=== PATIENT | male | born 1945 | race Caucasian/White ===

== ENCOUNTER → 2020-11-05 | Outpatient (CLI) | payer MEDICARE ==
--- NOTE | 2020-11-05 16:17 | CT ---
EXAMINATION TYPE: CT ChestAbdPelvis w con DATE OF EXAM: 11/05/2020 COMPARISON: None. HISTORY: lymphoma CT DLP: 2604.4 mGycm. Automated Exposure Control for Dose Reduction was Utilized. CONTRAST: CT scan of the thorax, abdomen and pelvis is performed with IV Contrast, patient injected with 80cc m L of Isovue 300. FINDINGS: LUNGS: There is 7 to 8 mm calcified nodule or granuloma in the superior aspect left lower lobe axial image 27. Elevated left hemidiaphragm with mild left basilar linear scarring and/or atelectasis. No s uspicious noncalcified pulmonary nodules or masses. No pleural effusion or pneumothorax seen. MEDIASTINUM: There are some prominent bilateral hilar lymph nodes for reference 1.5 x 1.7 cm right hi lar lymph node image 36 is noted. Superior to this there is 1.6 x 1.4 cm right suprahilar lymph node axial image 29. Tiny pericardial effusion is seen. Mild cardiomegaly. OTHER: No axillary adenopathy.. LIVER/GB: Liver is small in size with lobulated peripheral contour and heterogeneously hypodense. Sub centimeter low dense lesion posterior right hepatic lobe on axial image 63. PANCREAS: Moderate generalized fat replaced atrophy. SPLEEN: Spleen is nonenlarged. ADRENALS: No significant abnormality is seen. KIDNEYS: Symmetric cortical medullary uptake and excretion without hydronephrosis seen bilaterally. M oderate concentric wall thickening in poorly distended bladder. BOWEL: No significant abnormality is seen. GENITAL ORGANS: Slightly enlarged prostate gland consistent with BPH.. LYMPH NODES: No suspicious greater than 1cm abdominal or pelvic lymph nodes are appreciated. Prominen t borderline enlarged bilateral groin lymph nodes but retention of central fatty hilum is felt presen t. OSSEOUS STRUCTURES: Moderate to severe narrowing with vacuum disc phenomenon and endplate sclerosis L 4-L5 level. Yhtospml-ym-tauhoh disc space narrowing L5-S1 level. Moderate multilevel spurring in the spine. OTHER: No significant additional abnormality is seen. IMPRESSION: Abnormal right hilar adenopathy. Possible underlying cirrhosis. Correlate clinically. Cor relation with old outside CT or PET/CT would be beneficial.
== END | disposition home or self-care (01) ==
LOC: RADCTMAIN 13:56
PROVIDERS: ATTEND Internal Medicine Hematology & Oncology
DX: R59.9 Enlarged lymph nodes, unspecified (principal); C88.4 Extranodal marginal zone B-cell lymphoma of mucosa-associated lymphoid tissue [MALT-lymphoma]
CPT/HCPCS: 82565; 84520; 71260; 74177; 36415; Q9967

== ENCOUNTER → 2021-01-29 | Outpatient (CLI) | payer MEDICARE ==
[2021-01-29 10:44] LABS: African American GFR (CKD) >90 (>60 ml/min/1.73 sqM); Blood Urea Nitrogen 19 mg/dL (9-20); Non-African American GFR(CKD) 87 (>60 ml/min/1.73 sqM)
--- NOTE | 2021-01-29 13:56 | CT ---
EXAMINATION TYPE: CT chest w con DATE OF EXAM: 01/29/2021 COMPARISON: 11/05/2020 HISTORY: Lymphoma CT DLP: 941.80 mGycm, Automated exposure control for dose reduction was used. CONTRAST: Performed injected with 100 ml mL of Isovue 300. TECHNIQUE: Axial images were obtained at 5 mm thick sections. Reconstructed images are reviewed on [employer] computer in the coronal plane. FINDINGS: Portion of the thyroid visualized is normal. No suspicious lung nodules or focal infiltrates are present. Calcified 0.6 cm granuloma remains at th e left base. No enlarged mediastinal or hilar adenopathy is evident. Significant shoddy lymphadenopathy is not jesus ntified. Couple small right hilar lymph nodes are noted. These are diminished in size from the compar caro. The ascending aorta diameter at the level of the main pulmonary artery is 3.4 cm. The main pu lmonary artery diameter at the bifurcation is 3.[address] sections are obtained through the upper abdomen. Abdomen is essentially unremarkable. IMPRESSIONS: 1. No suspicious enlarged lymphadenopathy.
== END | disposition home or self-care (01) ==
LOC: RADCTMAIN 10:06
PROVIDERS: ATTEND Internal Medicine Hematology & Oncology
DX: C88.4 Extranodal marginal zone B-cell lymphoma of mucosa-associated lymphoid tissue [MALT-lymphoma] (principal); E11.9 Type 2 diabetes mellitus without complications; Z79.84 Long term (current) use of oral hypoglycemic drugs
CPT/HCPCS: 82565; 84520; 71260; 36415; Q9967

== ENCOUNTER 2022-08-26 06:33 | Day surgery (SDC) | payer MEDICARE ==
[~2022-08-26 06:33] MED LIST: LACTATED RINGERS 1,000 ML IV SCH; SODIUM CHLORIDE 0.9% 1,000 ML IV SCH
[2022-08-26 07:02] LABS: Glucose,Whole Blood 124 mg/dL (70-110)
[2022-08-26] MEDS ORDERED: SODIUM CHLORIDE 0.9% 500 ML 500 ML IV ONE (07:04)
[2022-08-26 07:07] VITALS: RESP 16
[2022-08-26 07:28] LABS: Calcium 8.4 mg/dL (8.4-10.2); Potassium 4.3 mmol/L (3.5-5.1)
--- NOTE | 2022-08-26 07:54 | P.TEE ---
Description of Procedure(s): Procedure performed: Transesophageal Echocardiogram with color flow doppler, pulsed wave doppler and continuous wave doppler, Synchronized cardioversion Moderate conscious sedation: Moderate conscious sedation was supplied by anesthesia Complications: none Indications: Afib PROCEDURE: After the risks, benefits and alternatives of the above mentioned procedure was explained in detail with the patient, informed consent was obtained. Patient was brought to the lab in a fasting state. Patient was given sedation by anesthesia. The throat was sprayed with Hurricane to anesthetize the throat. A lubricated Omni probe was then introduced into the esophagus and stomach and multiple views were obtained. 2D echo with color flow doppler, pulsed wave doppler and continuous wave doppler was utilized. Agitated saline bubbles were injected to assess for any intra-atrial shunt. The probe was then removed. Synchronized cardioversion was performed with 200 J with resultant sinus rhythm. Patient tolerated the procedure well. Patient was transferred to the post procedure area in stable and satisfactory condition. FINDINGS: 1. The aortic valve is tricuspid and functioning normally with trace aortic insufficiency. 2. The mitral valve appears be normal with trace mitral regurgitation. 3. Tricuspid valve appears to be normal without significant tricuspid regurgitation. 4. The interatrial septum is intact. No evidence of PFO. 5. Left atrial appendage is free of clot. 6. Left ventricular ejection fraction is 45-50% with mild global hypokinesis.
[2022-08-26 08:22] VITALS: TEMP 97.5
[2022-08-26] MEDS ORDERED: SODIUM CHLORIDE 0.9% 1,000 ML IV ONE (08:35)
[2022-08-26 19:19] VITALS: BP 111/63; PULSE 55
== END 2022-08-26 09:53 | disposition home or self-care (01) ==
LOC: CATHCVL 06:33
PROVIDERS: ATTEND Internal Medicine
DX: I48.91 Unspecified atrial fibrillation (principal); I34.0 Nonrheumatic mitral (valve) insufficiency; I10 Essential (primary) hypertension; E11.9 Type 2 diabetes mellitus without complications; Z79.899 Other long term (current) drug therapy; Z79.01 Long term (current) use of anticoagulants
CPT/HCPCS: 80048; 92960; 93005; 93312; 93320; 93325

== ENCOUNTER → 2022-09-28 | Outpatient (CLI) | payer MEDICARE ==
--- NOTE | 2022-09-28 10:53 | MR ---
EXAMINATION TYPE: MR lumbar spine wo con DATE OF EXAM: 09/28/2022 COMPARISON: None HISTORY: Chronic lower back pain, radiates down left leg. TECHNIQUE: Multiplanar, multisequence images of the lumbar spine were acquired without IV contrast. Findings: Lumbar vertebral segments are normal in height and alignment and there is no fracture or subluxation. . There is severe degenerative disease at the L to 3, L4-5 and L5-S1 levels where there is displaced na rrowing circumferential disc bulge and spondylosis. There are discogenic endplate changes There is moderate degenerative disc disease with moderate disc space narrowing and spondylosis at the L1-2 level. The L3-4 disc spaces well-maintained in height. Secondary to marked circumferential disc bulge, hypertrophy of the facets and thickening of ligamentu m flavum, there is severe spinal stenosis at the L2-3 level. There is buckling of the nerve roots of the cauda equina superior to the L2-3 level which also indicates severe stenosis at the L2-3 level. There is mild stenosis at the L4-5 level secondary to circumferential disc bulge and thickening of li gamentum flavum as well as facet hypertrophy. In particular there is significant compromise of the ri ght lateral recess secondary to facet hypertrophy and disc bulge. There is no focal disc herniation. There is moderate facet arthropathy at the L2-3, L3-4 and L4-5 levels. Paraspinal soft tissues are unremarkable. There is mild compromise of the L4-5 neuroforamina on the right and mild to moderate compromise of th e neuroforamina at the L2-3, L4-5 and L5-S1 levels on the left.. IMPRESSION: 1. Multilevel degenerative disc disease severe at the L2-3, L4-5 and L5-S1 levels. 2. Severe spinal stenosis at the L2-3 level and mild spinal stenosis at the L4-5 level. Severe compro mise of the right lateral recess at the L4-5 level. 3. No focal disc herniation. 4. Moderate facet degeneration at the L2-3, L3-4 and L4-5 levels. 5. Multilevel kgjy-ol-wzbzqcoe neural foraminal stenosis, left greater than right.
== END | disposition home or self-care (01) ==
LOC: RADMRIMAIN 09:30
PROVIDERS: ATTEND Orthopaedic Surgery
DX: M47.26 Other spondylosis with radiculopathy, lumbar region (principal); M51.16 Intervertebral disc disorders with radiculopathy, lumbar region; M48.061 Spinal stenosis, lumbar region without neurogenic claudication; M99.73 Connective tissue and disc stenosis of intervertebral foramina of lumbar region
CPT/HCPCS: 72148

== ENCOUNTER 2022-10-26 17:29 | Inpatient (IN) | payer MEDICARE ==
[2022-10-26] MEDS ORDERED: ATROPINE SULFATE 0.1 MG/ML 10ML SYRINGE IV STA (17:45)
[2022-10-26] MEDS ORDERED: DOPamine DRIP 800 MG in DEXTROSE/WATER 1 250ML.BAG IV ONE (17:55)
--- NOTE | 2022-10-26 18:01 | ED ---
General Adult HPI - General Chief complaint: Arrhythmia/Palpitations Stated complaint: AFib Time Seen by Provider: 10/26/22 17:43 Source: patient Mode of arrival: ambulatory Limitations: no limitations - History of Present Illness Initial comments: Dictation was produced using [employer] dictation software. please excuse any grammatical, word or spelling errors. Chief Complaint: 77-year-old male presents emergency department for bradycardia and generalized weakness History of Present Illness: Is 77-year-old male. History of present illness obtained from was at the bedside. states that today he became very weak and cyanotic and pale. His rash to the emergency department via private vehicle. Patient allegedly was recently hospitalized for atrial fibrillation with rapid ventricular rate. He was started on A. fib medications. is not entirely confident what medications he was recently prescribed but it does in clude beta kwabena. He was prescribed eliquis however has not started that medication. The ROS documented in this emergency department record has been reviewed and confirmed by me. Those systems with pertinent positive or negative responses have been documented in the HPI. All other systems are other negative and/or noncontributory. PHYSICAL EXAM: General Impression: Lethargic, pale HEENT: Normocephalic atraumatic, extra-ocular movements intact, pupils equal and reactive to light bilaterally, dry mucous membranes Cardiovascular: Bradycardic Chest: no retractions, no tachypnea Abdomen: abdomen soft, non-tender, non-distended, no organomegaly Musculoskeletal: Pulses present and equal in all extremities, no peripheral edema Motor: no focal deficits noted Neurological: CN II-XII grossly intact, no focal motor or sensory deficits noted ED course: 77-year-old male presents to the emergency department for weakness, pallor. Vital signs upon arrival shows heart rate of 40, blood pressure 60/30, rest of vital signs within acceptable limits. Patient received an ER room #5. Patient's heart rate on the legal executive assistant went down as low as 19, with a average of low 20s. Patient was given 1 mg of atropine and 20 Rich grams of epinephrine with improvement of heart rate to the 40s. Cardiology was contacted immediately for emergent temporary IV pacemaker placement. Dr. Machado request the patient be started on dopamine and Levophed. Patient has a narrow complex bradycardia seen on the EKG. No obvious P waves. Nursing notes and chart review was performed EKG interpreted by me: Ventricular rate 20, bradycardia, QRS 103, QTc 453. Laboratory evaluation obtained. CBC remarkable. Coag panel is negative. Metabolic panel shows mild non-gap acidosis bicarb of 18. Elevated renal markers creatinine of 2.04, BUN 37. Lactic acidosis 3.7. Rest of labs unremar kable. Chest x-ray is nonacute. Patient reevaluated at the bedside at 6:50 PM. His vital signs remain stable with a rate in the mid 30s. Blood pressure is 91/55. These results were relayed to Dr. Matute who requests that Commercial Teller be called in for stat IV pacer placement. critical care time: 76 minutes - Related Data Home Medications Medication Instructions Recorded Confirmed Apixaban [Eliquis] 5 mg PO BID 08/25/22 08/26/22 Metoprolol Tartrate [Lopressor] 100 mg PO DAILY 08/25/22 08/25/22 Spironolactone [Aldactone] 25 mg PO DAILY 08/25/22 08/25/22 Tamsulosin HCl [Flomax] 0.4 mg PO BID 08/25/22 08/25/22 metFORMIN HCL [Glucophage] 500 mg PO BID 08/25/22 08/25/22 Previous Rx's Medication Instructions Recorded Amiodarone [Cordarone] 100 mg PO DAILY #90 tab 08/26/22 Furosemide [Lasix] 40 mg PO DAILY #90 tab 08/26/22 Allergies Allergy/AdvReac Type Severity Reaction Status Date / Time No Known Allergies Allergy Verified 10/26/22 17:52 Review of Systems ROS Statement: Those systems with pertinent positive or pertinent negative responses have been documented in the HPI. ROS Other: All systems not noted in ROS Statement are negative. Past Medical History Past Medical History: Atrial Fibrillation, Diabetes Mellitus, Hypertension, Prostate Disorder Additional Past Medical History / Comment(s): SOB w/exertion, lightheaded @times History of Any Multi-Drug Resistant Organisms: None Reported Past Surgical History: Hernia Repair, Orthopedic Surgery Additional Past Surgical History / Comment(s): numerous vocal cord surgeries for papillomas, left shoulder surg., arm surg. for fx.-no hardware Past Anesthesia/Blood Transfusion Reactions: Previous Problems w/ Anesthesia Additional Past Anesthesia/Blood Transfusion Reaction / Comment(s): woke up once during surgery Past Psychological History: No Psychological Hx Reported Smoking Status: Never smoker Past Alcohol Use History: Daily Past Drug Use History: None Reported General Exam Limitations: no limitations Course Vital Signs 10/26/22 10/26/22 10/26/22 17:35 17:58 18:21 Temperature 98.2 F Pulse Rate 40 L 40 L 37 L Respiratory 24 16 18 Rate Blood Pressure 60/30 96/66 104/66 O2 Sat by Pulse 99 99 100 Oximetry Medical Decision Making - Lab Data Result diagrams: 10/26/22 17:57 10/26/22 17:57 Lab Results 10/26/22 10/26/22 10/26/22 Range/Units 17:57 17:57 17:57 WBC 7.8 (3.8-10.6) k/uL RBC 3.45 L (4.30-5.90) m/uL Hgb 12.3 L (13.0-17.5) gm/dL Hct 36.6 L (39.0-53.0) % MCV 106.0 H (80.0-100.0) fL MCH 35.7 H (25.0-35.0) pg MCHC 33.7 (31.0-37.0) g/dL RDW 12.6 (11.5-15.5) % Plt Count 153 (150-450) k/uL MPV 9.1 Neutrophils % 68 % Lymphocytes % 18 % Monocytes % 8 % Eosinophils % 4 % Basophils % 1 % Neutrophils # 5.3 (1.3-7.7) k/uL Lymphocytes # 1.4 (1.0-4.8) k/uL Monocytes # 0.6 (0-1.0) k/uL Eosinophils # 0.3 (0-0.7) k/uL Basophils # 0.1 (0-0.2) k/uL Macrocytosis Slight PT (9.0-12.0) sec INR (<1.2) APTT (22.0-30.0) sec Sodium 136 L (137-145) mmol/L Potassium 5.2 H (3.5-5.1) mmol/L Chloride 109 H (98-107) mmol/L Carbon Dioxide 18 L (22-30) mmol/L Anion Gap 9 mmol/L BUN 37 H (9-20) mg/dL Creatinine 2.04 H (0.66-1.25) mg/dL Est GFR (CKD-EPI)AfAm 36 (>60 ml/min/1.73 sqM) Est GFR (CKD-EPI)NonAf 31 (>60 ml/min/1.73 sqM) Glucose 242 H (74-99) mg/dL Plasma Lactic Acid Amadeo 3.7 H* (0.7-2.0) mmol/L Calcium 8.4 (8.4-10.2) mg/dL Ionized Calcium Deric 4.8 (4.5-5.3) mg/dL Magnesium 2.0 (1.6-2.3) mg/dL Total Bilirubin 0.6 (0.2-1.3) mg/dL AST 37 (17-59) U/L ALT 21 (4-49) U/L Alkaline Phosphatase 81 (38-126) U/L Total Protein 6.3 (6.3-8.2) g/dL Albumin 3.2 L (3.5-5.0) g/dL 10/26/22 Range/Units 17:57 WBC (3.8-10.6) k/uL RBC (4.30-5.90) m/uL Hgb (13.0-17.5) gm/dL Hct (39.0-53.0) % MCV (80.0-100.0) fL MCH (25.0-35.0) pg MCHC (31.0-37.0) g/dL RDW (11.5-15.5) % Plt Count (150-450) k/uL MPV Neutrophils % % Lymphocytes % % Monocytes % % Eosinophils % % Basophils % % Neutrophils # (1.3-7.7) k/uL Lymphocytes # (1.0-4.8) k/uL Monocytes # (0-1.0) k/uL Eosinophils # (0-0.7) k/uL Basophils # (0-0.2) k/uL Macrocytosis PT 11.2 (9.0-12.0) sec INR 1.1 (<1.2) APTT 22.7 (22.0-30.0) sec Sodium (137-145) mmol/L Potassium (3.5-5.1) mmol/L Chloride (98-107) mmol/L Carbon Dioxide (22-30) mmol/L Anion Gap mmol/L BUN (9-20) mg/dL Creatinine (0.66-1.25) mg/dL Est GFR (CKD-EPI)AfAm (>60 ml/min/1.73 sqM) Est GFR (CKD-EPI)NonAf (>60 ml/min/1.73 sqM) Glucose (74-99) mg/dL Plasma Lactic Acid Amadeo (0.7-2.0) mmol/L Calcium (8.4-10.2) mg/dL Ionized Calcium Edric (4.5-5.3) mg/dL Magnesium (1.6-2.3) mg/dL Total Bilirubin (0.2-1.3) mg/dL AST (17-59) U/L ALT (4-49) U/L Alkaline Phosphatase (38-126) U/L Total Protein (6.3-8.2) g/dL Albumin (3.5-5.0) g/dL Disposition Clinical Impression: Bradycardia Disposition: ADMITTED IP TO THIS HOSP Condition: Critical Referrals: Rolly Londono MD [Primary Care Provider] - 1-2 days Decision Time: 18:51
[2022-10-26] MEDS ORDERED: SODIUM CHLORIDE 0.9% 1,000 ML IV STA (18:14)
[2022-10-26] MEDS: NOREPINEPHRINE 4 MG in SODIUM CHLORIDE 0.9% 250 ML IV SCH (18:20)
--- NOTE | 2022-10-26 18:23 | XR ---
EXAMINATION TYPE: XR chest 1V portable DATE OF EXAM: 10/26/2022 COMPARISON: 08/16/2018 HISTORY: Bradycardia TECHNIQUE: FINDINGS: Heart is enlarged. No heart failure seen. There is mild subsegmental atelectasis right lung base. Bony thorax is intact. No pleural effusion. IMPRESSION: There is some minimal atelectasis right lung base which is new compared to old exam. No h eart failure.
[2022-10-26 18:25] LABS: Basophils # (A) 0.1 k/uL (0-0.2); Basophils % (A) 1 %; Eosinophils # (A) 0.3 k/uL (0-0.7); Eosinophils % (A) 4 %; HCT 36.6 % (39.0-53.0); HGB 12.3 gm/dL (13.0-17.5); Lymphocytes # (A) 1.4 k/uL (1.0-4.8); Lymphocytes % (A) 18 %; MCH 35.7 pg (25.0-35.0); MCHC 33.7 g/dL (31.0-37.0); Macrocytosis Slight; Mean Platelet Volume 9.1; Monocytes # (A) 0.6 k/uL (0-1.0); Monocytes % (A) 8 %; Neutrophils # (A) 5.3 k/uL (1.3-7.7); Neutrophils % (A) 68 %; Platelet Count 153 k/uL (150-450); RBC 3.45 m/uL (4.30-5.90); RDW 12.6 % (11.5-15.5); WBC 7.8 k/uL (3.8-10.6)
[2022-10-26 18:29] LABS: Ionized Calcium 4.8 mg/dL (4.5-5.3)
[2022-10-26 18:39] LABS: Albumin 3.2 g/dL (3.5-5.0); Calcium 8.4 mg/dL (8.4-10.2); Total Bilirubin 0.6 mg/dL (0.2-1.3); Total Protein 6.3 g/dL (6.3-8.2)
[2022-10-26 18:42] LABS: Potassium 5.2 mmol/L (3.5-5.1)
[2022-10-26 18:44] LABS: INR 1.1 (<1.2); Partial Thromboplastin Time 22.7 sec (22.0-30.0); Prothrombin Time 11.2 sec (9.0-12.0)
[2022-10-26] MEDS ORDERED: NALOXONE 0.4 MG/ML 1 ML VIAL IV PRN (18:51)
[2022-10-26] MEDS ORDERED: METOCLOPRAMIDE 5 MG/ML 2 ML VIAL IVP STA (19:09)
[2022-10-26] MEDS ORDERED: DEXAMETHASONE SOD PHOSPHATE 10 MG/ML 1 ML VIAL IV STA (19:12)
[2022-10-26] MEDS ORDERED: LEVOTHYROXINE IVP 100 MCG/5 ML VIAL IV ONE (19:30)
[2022-10-26] MEDS ORDERED: LIDOCAINE 1% INJ 10MG/ML (30 ML VIAL-PF) SQ ONE (19:46)
[2022-10-26] MEDS ORDERED: IV FLUID CONTINUATION 1,000 ML IV ONE (19:59)
[2022-10-26] MEDS ORDERED: MIDAZOLAM 2 MG/2 ML VIAL IV ONE (19:59)
[2022-10-26 20:26] LABS: Glucose,Whole Blood 215 mg/dL (70-110)
[2022-10-26] MEDS: SODIUM CHLORIDE 0.9% 1,000 ML IV SCH (20:38)
[2022-10-26 20:44] LABS: T4, Free (Free Thyroxine) 1.3 ng/dL (0.78-2.19)
[2022-10-26] MEDS: INSULIN ASPART (NovoLOG) 100 UNIT/ML VIAL SQ SCH (22:04)
--- NOTE | 2022-10-27 02:45 | CC ---
CARDIAC CATHETERIZATION REPORT PROCEDURE: Temporary transvenous pacemaker. INDICATION: Symptomatic bradycardia. This is a 77-year-old gentleman with history of atrial fibrillation, status post cardioversion about 5 to 6 weeks ago, who is on metoprolol, amiodarone, and Eliquis, came to hospital with symptoms of not feeling well, near- syncope, and was profoundly hypotensive and bradycardic with a heart rate of 35 beats per minute. He had junctional bradycardia with a heart rate of 36 beats per minute with sinoatrial arrest. I started him on dopamine and Levophed in the ER and brought him to labor relations supervisor to do a temporary transvenous pacemaker. PROCEDURE NOTE: After obtaining informed consent, temporary transvenous pacemaker was performed via the right femoral vein. The access was obtained. A 6-Yi sheath was placed, and under fluoroscopic guidance, the temporary transvenous pacemaker was floated into the right ventricle. Adequate pacing and sensing thresholds were obtained, and the patient will be admitted to ICU with a plan to perform permanent pacemaker on Thursday. I am going to hold the medications that the patient was on, start him on IV heparin tomorrow morning and schedule him for the device on Thursday hopefully. The patient received moderate conscious sedation. Total sedation time was 7 minutes. MMODL / IJN: [id number] /
--- NOTE | 2022-10-27 02:49 | CONS ---
CONSULTATION CHIEF COMPLAINT: Near-syncope. HISTORY OF PRESENT ILLNESS: 77-year-old gentleman with history of atrial fibrillation, status post cardioversion, presented to hospital with profound symptomatic bradycardia and hypotension, and the patient was started on dopamine, Levophed, and was taken to the woven label designer for temporary transvenous pacemaker. He denies chest pain or difficulty in breathing. Does not have leg edema, PND, or orthopnea. There is no prior history of coronary artery disease or congestive heart failure. I do not have his old records with me. PAST MEDICAL HISTORY: Significant for atrial fibrillation. Also significant for hypertension. MEDICATIONS: At home included: 1. Metoprolol. 2. Amiodarone. 3. Eliquis. ALLERGIES: As charted. FAMILY HISTORY: Negative for premature coronary artery disease. SOCIAL HISTORY: Negative for smoking, EtOH abuse, or drug abuse. REVIEW OF SYSTEMS: 14 out of 14 review of systems has been performed. Pertinents are as documented. PHYSICAL EXAMINATION: GENERAL: Comfortable at rest. VITAL SIGNS: Heart rate is 35 beats per minute, blood pressure is 105/70, respiratory rate 18. NECK: There is no jugular venous distention. Carotid upstroke is normal. There is no bruit. CHEST: Reveals good air entry bilaterally. HEART: Reveals first and second heart sounds. No gallop. No murmur. ABDOMEN: Soft, nontender. EXTREMITIES: Do not reveal any edema. Peripheral pulses are felt. ASSESSMENT: 1. High-grade atrioventricular block. 2. Paroxysmal atrial fibrillation. PLAN: The patient underwent temporary transvenous pacemaker, will be admitted to ICU. I will stop the dopamine and Levophed at this time. MMODL / IJN: [id number] /
[2022-10-27] MEDS: SODIUM CHLORIDE 0.9% 1,000 ML IV SCH ×2 (04:25→17:36)
[2022-10-27 04:54] LABS: Basophils % (A) 0 %; Eosinophils % (A) 0 %; Lymphocytes # (A) 0.6 k/uL (1.0-4.8); Lymphocytes % (A) 8 %; MCH 34.5 pg (25.0-35.0); MCHC 32.4 g/dL (31.0-37.0); MCV 106.3 fL (80.0-100.0); Macrocytosis Moderate; Mean Platelet Volume 8.8; Monocytes # (A) 0.2 k/uL (0-1.0); Monocytes % (A) 3 %; Neutrophils # (A) 5.7 k/uL (1.3-7.7); Neutrophils % (A) 88 %; Platelet Count 146 k/uL (150-450); RBC 3.48 m/uL (4.30-5.90); RDW 12.4 % (11.5-15.5); WBC 6.5 k/uL (3.8-10.6)
[2022-10-27 05:20] LABS: Calcium 8.2 mg/dL (8.4-10.2)
[2022-10-27 06:51] LABS: Glucose,Whole Blood 204 mg/dL (70-110)
[2022-10-27] MEDS: INSULIN ASPART (NovoLOG) 100 UNIT/ML VIAL SQ SCH ×4 (06:58→20:33)
[2022-10-27] MEDS ORDERED: LEVOTHYROXINE IVP 100 MCG/5 ML VIAL IV SCH (09:00)
[2022-10-27 11:28] LABS: Glucose,Whole Blood 237 mg/dL (70-110)
[2022-10-27] MEDS: HEPARIN SODIUM,PORCINE/PF 5,000 UNIT/0.5 ML SYRINGE SQ SCH ×2 (11:56→20:33)
--- NOTE | 2022-10-27 13:46 | PN ---
PROGRESS NOTE SUBJECTIVE: This is a 77-year-old gentleman, who presented to hospital with symptomatic bradycardia and was in junctional bradycardia and required temporary transvenous pacemaker yesterday. This morning, he remains in sinus rhythm with a heart rate of 60 beats per minute. The patient was on multiple medications that could lower his heart rate on his presentation including verapamil, Lopressor, and Cordarone, and his potassium was slightly elevated with Aldactone. I am going to decrease the temporary pacemaker rate down to 50 beats per minute and watch him overnight in ICU. If he continues to have stable rhythm, we can probably discontinue the temporary transvenous pacemaker, and he does not need any permanent pacemaker. However, if he continues to have bradycardia and require temporary pacemaker, then we may end up doing a permanent pacemaker. I am starting him on IV heparin and will switch him back to Eliquis tomorrow if he makes the decision that he does not need a permanent pacer. OBJECTIVE: GENERAL: Comfortable at rest. VITAL SIGNS: Stable. NECK: There is no jugular venous distention. CHEST: Reveals good air entry bilaterally HEART: Reveals first and second heart sounds. No gallop. EXTREMITIES: Did not reveal any edema. LABORATORY DATA: Show a hemoglobin of 12, platelet count of 146. Potassium is 5, BUN is 37, creatinine is 1.7. ASSESSMENT: 1. Symptomatic junctional bradycardia, status post temporary transvenous pacemaker. 2. Paroxysmal atrial fibrillation, status post cardioversion. PLAN: The patient has regained sinus rhythm. I will continue to hold the AV sahil blockers at this time. Start him on IV heparin. MMODL / IJN: [id number] /
[2022-10-27] MEDS: TAMSULOSIN 0.4 MG CAP.ER.24H PO SCH ×2 (14:10→20:32)
[2022-10-27 16:22] LABS: Glucose,Whole Blood 196 mg/dL (70-110)
[2022-10-27] MEDS: NOREPINEPHRINE 4 MG in SODIUM CHLORIDE 0.9% 250 ML IV SCH (17:35)
--- NOTE | 2022-10-27 19:25 | P.HPIM ---
History of Present Illness H&P Date: 10/27/22 Chief Complaint: Dizziness Mr. Reaves is a 80-year-old male with a past medical history of atrial fibrillation, diabetes mellitus, hypertension, prostate disorder coming in with a chief complaint of dizziness and generalized weakness. Patient states that he was in his usual state of health yesterday evening when he started to feel weak and started to feel dizzy. He said everything was looking blurred to him and that he felt like that he would close his consciousness. Patient denies having any falls. He denied having any chest pain or palpitation. Patient has history of atrial fibrillation status post cardioversion and discharged on antiarrhythmics. On reviewing his medication patient takes Lopressor, Cardizem, amiodarone, Lasix and spironolactone. Patient denied having any fever chills or rigors. No abdominal pain nausea vomiting or diarrhea. No UTI-like symptoms. In the ER at the time of admission patient was found to have severe bradycardia with heart rate as low as 19. So cardiology has been consulted and patient was taken to the filling station laborer immediately and had a transvenous pacemaker done by Dr. Machado yesterday. Eventually the patient has been transferred to the ICU. Currently patient is lying comfortably in the bed appears to be in no acute distress. Review of Systems REVIEW OF SYSTEMS: PSYCH: No anxiety or depression NEURO:No c/o weakness of the extremties, or No speech abnormalities. HEMATOLOGIC: No history of easy bleeding and bruising . No recent infections . RESPIRATORY: No cough, No SOB, No chest discomfort. IMMUNE: No infections INTEGUMENT: no rashes OPHTHALMOLOGIC: No blurry vision and no eye discharge : No dysuria or hematuria CARDIAC: As per HPI MUSCULOSKELETAL : No Aches or pains in the joints or muscles. GI: No abdominal pain, Nausea or vomiting. No constipation or diarrhea. Past Medical History Past Medical History: Atrial Fibrillation, Diabetes Mellitus, Hearing Disorder / Deafness, Hypertension, Prostate Disorder Additional Past Medical History / Comment(s): SOB w/exertion, lightheaded @times History of Any Multi-Drug Resistant Organisms: None Reported Past Surgical History: Hernia Repair, Orthopedic Surgery Additional Past Surgical History / Comment(s): numerous vocal cord surgeries for papillomas, left shoulder surg., arm surg. for fx.-no hardware. 10/26/22 TVP Past Anesthesia/Blood Transfusion Reactions: Previous Problems w/ Anesthesia Additional Past Anesthesia/Blood Transfusion Reaction / Comment(s): woke up once during surgery Past Psychological History: No Psychological Hx Reported Smoking Status: Never smoker Past Alcohol Use History: Daily Additional Past Alcohol Use History / Comment(s): 1/2 drinks per day Past Drug Use History: None Reported Medications and Allergies Home Medications Medication Instructions Recorded Confirmed Type Apixaban [Eliquis] 5 mg PO BID 08/25/22 10/26/22 History Metoprolol Tartrate [Lopressor] 100 mg PO DAILY 08/25/22 10/26/22 History Spironolactone [Aldactone] 25 mg PO DAILY 08/25/22 10/26/22 History Tamsulosin HCl [Flomax] 0.4 mg PO BID 08/25/22 10/26/22 History metFORMIN HCL [Glucophage] 500 mg PO BID 08/25/22 10/26/22 History Furosemide [Lasix] 40 mg PO DAILY #90 tab 08/26/22 10/26/22 Rx Amiodarone [Cordarone] 200 mg PO DAILY 10/26/22 10/26/22 History Potassium Chloride ER [K-Dur 20] 20 meq PO BID 10/26/22 10/26/22 History Verapamil HCl [Verapamil ER] 120 mg PO DAILY 10/26/22 10/26/22 History Allergies Allergy/AdvReac Type Severity Reaction Status Date / Time No Known Allergies Allergy Verified 10/26/22 19:13 Physical Exam Vitals: Vital Signs Temp Pulse Pulse Pulse Resp BP BP 10/27/22 11:00 59 L 15 122/60 10/27/22 10:00 60 15 118/62 10/27/22 09:00 65 13 112/62 10/27/22 08:00 98.7 F 61 14 102/70 10/27/22 07:00 60 12 113/64 10/27/22 06:00 59 L 12 118/74 10/27/22 05:00 59 L 19 114/66 10/27/22 04:00 97.9 F 59 L 19 107/63 10/27/22 03:00 59 L 12 109/68 10/27/22 02:00 59 L 12 104/65 10/27/22 01:00 60 17 102/70 10/27/22 00:07 59 L 19 102/70 10/27/22 00:00 97.7 F 60 20 113/71 10/26/22 23:00 60 18 106/71 10/26/22 22:52 106/71 10/26/22 22:00 59 L 19 106/69 10/26/22 21:22 106/69 10/26/22 21:00 97.5 F L 60 17 107/73 10/26/22 20:52 59 L 109/70 10/26/22 20:45 71 20 91/53 10/26/22 20:37 60 91/53 10/26/22 20:30 49 L 13 125/73 10/26/22 20:27 97.5 F L 60 15 125/73 10/26/22 20:21 29 H 10/26/22 19:15 34 L 34 L 12 82/52 10/26/22 18:21 37 L 18 104/66 10/26/22 17:58 40 L 16 96/66 10/26/22 17:35 98.2 F 40 L 24 60/30 Pulse Ox 10/27/22 11:00 95 10/27/22 10:00 95 10/27/22 09:00 92 L 10/27/22 08:00 95 10/27/22 07:00 97 10/27/22 06:00 94 L 10/27/22 05:00 96 10/27/22 04:00 97 10/27/22 03:00 92 L 10/27/22 02:00 94 L 10/27/22 01:00 96 10/27/22 00:07 96 10/27/22 00:00 95 10/26/22 23:00 95 10/26/22 22:52 10/26/22 22:00 94 L 10/26/22 21:22 10/26/22 21:00 98 10/26/22 20:52 10/26/22 20:45 98 10/26/22 20:37 10/26/22 20:30 98 10/26/22 20:27 99 10/26/22 20:21 10/26/22 19:15 99 10/26/22 18:21 100 10/26/22 17:58 99 10/26/22 17:35 99 Intake and Output 10/26/22 10/27/22 10/27/22 22:59 06:59 14:59 Intake Total 122.470 180 380 Output Total 0 0 600 Balance 122.470 180 -220 Intake: IV 90 180 80 0.9 @ KVO 40 180 80 Intake, IV Titration 32.470 Amount DOPamine DRIP 800 mg In 8.245 Dextrose/Water 1 250ml. bag @ 2 MCG/KG/MIN 4.457 mls/hr IV .Q24H ONE Rx#: [id number] Norepinephrine 4 mg In 24.225 Sodium Chloride 0.9% 250 ml @ 0.03 MCG/KG/MIN 13. 584 mls/hr IV .[id number] [facility] Rx#:[id number] Oral 300 Output: Urine 0 0 600 Other: Voiding Method Urinal Urinal Urinal # Voids 1 Weight 125.5 kg 125.5 kg PHYSICAL EXAM GEN. APPEARANCE: alert, in no apparent distress HEAD EXAM: atraumatic, normocephalic, normal inspection EYE EXAM: normal appearance, PERRL, EOMI. ENT EXAM: normal exam, mucous membranes moist RESPIRATORY EXAM: normal lung sounds bilaterally. Few basal crackles. CARDIOVASCULAR EXAM: regular rate, normal rhythm, normal heart sounds. GI/ABDOMINAL EXAM: soft, normal bowel sounds. Nontender nondistended EXTREMITIES EXAM: Mild pitting edema bilaterally NEUROLOGICAL EXAM: alert, oriented X3 PSYCHIATRIC EXAM: normal affect, normal mood Results CBC & Chem 7: 10/27/22 04:27 10/27/22 04:27 Labs: Abnormal Lab Results - Last 24 Hours (Table) 10/26/22 10/26/22 10/26/22 Range/Units 17:57 17:57 17:57 RBC 3.45 L (4.30-5.90) m/uL Hgb 12.3 L (13.0-17.5) gm/dL Hct 36.6 L (39.0-53.0) % MCV 106.0 H (80.0-100.0) fL MCH 35.7 H (25.0-35.0) pg Plt Count (150-450) k/uL Lymphocytes # (1.0-4.8) k/uL Sodium 136 L (137-145) mmol/L Potassium 5.2 H (3.5-5.1) mmol/L Chloride 109 H (98-107) mmol/L Carbon Dioxide 18 L (22-30) mmol/L BUN 37 H (9-20) mg/dL Creatinine 2.04 H (0.66-1.25) mg/dL Glucose 242 H (74-99) mg/dL POC Glucose (mg/dL) (70-110) mg/dL Plasma Lactic Acid Amadeo 3.7 H* (0.7-2.0) mmol/L Calcium (8.4-10.2) mg/dL Albumin 3.2 L (3.5-5.0) g/dL TSH 17.800 H (0.465-4.680) mIU/L 10/26/22 10/27/22 10/27/22 Range/Units 20:24 04:27 04:27 RBC 3.48 L (4.30-5.90) m/uL Hgb 12.0 L (13.0-17.5) gm/dL Hct 37.0 L (39.0-53.0) % MCV 106.3 H (80.0-100.0) fL MCH (25.0-35.0) pg Plt Count 146 L (150-450) k/uL Lymphocytes # 0.6 L (1.0-4.8) k/uL Sodium 135 L (137-145) mmol/L Potassium (3.5-5.1) mmol/L Chloride 109 H (98-107) mmol/L Carbon Dioxide 21 L (22-30) mmol/L BUN 37 H (9-20) mg/dL Creatinine 1.71 H (0.66-1.25) mg/dL Glucose 178 H (74-99) mg/dL POC Glucose (mg/dL) 215 H (70-110) mg/dL Plasma Lactic Acid Amadeo (0.7-2.0) mmol/L Calcium 8.2 L (8.4-10.2) mg/dL Albumin (3.5-5.0) g/dL TSH (0.465-4.680) mIU/L 10/27/22 10/27/22 Range/Units 06:49 11:27 RBC (4.30-5.90) m/uL Hgb (13.0-17.5) gm/dL Hct (39.0-53.0) % MCV (80.0-100.0) fL MCH (25.0-35.0) pg Plt Count (150-450) k/uL Lymphocytes # (1.0-4.8) k/uL Sodium (137-145) mmol/L Potassium (3.5-5.1) mmol/L Chloride (98-107) mmol/L Carbon Dioxide (22-30) mmol/L BUN (9-20) mg/dL Creatinine (0.66-1.25) mg/dL Glucose (74-99) mg/dL POC Glucose (mg/dL) 204 H 237 H (70-110) mg/dL Plasma Lactic Acid Amadeo (0.7-2.0) mmol/L Calcium (8.4-10.2) mg/dL Albumin (3.5-5.0) g/dL TSH (0.465-4.680) mIU/L Thrombosis Risk Factor Assmnt - Choose All That Apply Any of the Below Risk Factors Present?: Yes Each Factor Represents 1 point: Medical pt on bed rest, Obesity (BMI >25), Swollen legs (current) Other Risk Factors: Yes Each Risk Factor Represents 3 Points: Age 75 years or older Other congenital or acquired thrombophilia - If yes, enter type in comment: No Thrombosis Risk Factor Assessment Total Risk Factor Score: 6 Thrombosis Risk Factor Assessment Level: High Risk Assessment and Plan Assessment: ASSESSMENT Severe symptomatic bradycardia status post temporary transvenous pacemaker placement on 10/26/2022 History of atrial fibrillation, paroxysmal-status post cardioversion - patient has been started on IV heparin Acute kidney injury Hyponatremia Poorly controlled Type 2 diabetes mellitus Hypertension Prostrate disorder Mild protein calorie malnutrition PLAN : Patient is status post transvenous pacemaker placement and on IV heparin drip. Patient's creatinine started trending down which could be most likely because of hypotension that has happened yesterday. We'll continue with IV fluid resuscitation. Echocardiogram has been ordered and is pending. Patient's blood sugar has been running on the higher side,will adjust the dose of insulin. Patient will be monitored in the ICU. All AV sahil blocking agents are on hold. Further recommendations to follow depending on the progress of the patient.
[2022-10-27 20:10] LABS: Glucose,Whole Blood 180 mg/dL (70-110)
[2022-10-28 06:39] LABS: Glucose,Whole Blood 138 mg/dL (70-110)
[2022-10-28] MEDS: INSULIN ASPART (NovoLOG) 100 UNIT/ML VIAL SQ SCH ×4 (06:47→20:16)
[2022-10-28 07:31] LABS: Basophils % (A) 0 %; Eosinophils # (A) 0.1 k/uL (0-0.7); Eosinophils % (A) 2 %; HCT 36.3 % (39.0-53.0); Lymphocytes # (A) 1.2 k/uL (1.0-4.8); Lymphocytes % (A) 15 %; MCV 106.1 fL (80.0-100.0); Macrocytosis Moderate; Mean Platelet Volume 8.6; Monocytes # (A) 0.6 k/uL (0-1.0); Monocytes % (A) 7 %; Neutrophils # (A) 5.8 k/uL (1.3-7.7); Neutrophils % (A) 74 %; Platelet Count 142 k/uL (150-450); RBC 3.42 m/uL (4.30-5.90); RDW 12.6 % (11.5-15.5); WBC 7.7 k/uL (3.8-10.6)
[2022-10-28 07:41] LABS: Magnesium 1.9 mg/dL (1.6-2.3); Potassium 4.6 mmol/L (3.5-5.1)
--- NOTE | 2022-10-28 09:20 | PN ---
PROGRESS NOTE SUBJECTIVE: This is a 77-year-old gentleman with a history of hypertension and hypercholesterolemia. He has been admitted to the hospital with what seems to be significant bradycardia, atrial fibrillation, and junctional rhythm. However, after placing a temporary pacemaker on , he is back in sinus rhythm. He has a combination of what seems to be a recently diagnosed atrial fibrillation, paroxysmal in nature; type 2 diabetes; hypertension; and hyperlipidemia. He was at home on, 1. Amiodarone. 2. Metoprolol. 3. Verapamil. When he came into the hospital. He was in significant bradycardia and went on to have a temporary pacemaker from the right femoral venous approach. The pacemaker has not been required, the patient is in sinus rhythm. I am going to decrease the backup rate of 40 and later on this evening we will discontinue the pacemaker. His episode of severe profound bradycardia seems to be related to medications and underlying sick sinus syndrome. Additionally, his TSH level was also elevated. He is on thyroid supplements. I am recommending that we add a small dose of amlodipine and switch his Synthroid to 100 mcg daily p.o. I will probably take the temporary pacemaker out if he maintains sinus rhythm and he can be followed upon discharge as an outpatient with a 24- hour surveillance Holter and we should avoid rate lowering agents. I discussed my thoughts in detail with the patient. PHYSICAL EXAMINATION: VITAL SIGNS: Blood pressure today is 143/76, pulse rate is about 66, sinus with normal MO interval, normal QRS. HEART EXAM: Reveals a short systolic murmur at the base, preserved second heart sound. LUNGS: Reveal decent air entry. ABDOMEN: Unchanged. LOWER EXTREMITIES: Unchanged. This patient has a recent onset atrial fibrillation, converted to sinus rhythm, and now he is in sinus rhythm with a normal MO interval. We can switch the Synthroid from IV to oral, avoid rate lowering agents, and discontinue the temporary pacemaker if he has no further use probably later today. Discussed my thoughts in detail with the patient. MMODL / IJN: [id number] /
[2022-10-28] MEDS: LEVOTHYROXINE 100 MCG TAB PO SCH (10:00)
[2022-10-28] MEDS: NOREPINEPHRINE 4 MG in SODIUM CHLORIDE 0.9% 250 ML IV SCH (10:00)
[2022-10-28] MEDS: TAMSULOSIN 0.4 MG CAP.ER.24H PO SCH ×2 (10:00→21:06)
[2022-10-28] MEDS: HEPARIN SODIUM,PORCINE/PF 5,000 UNIT/0.5 ML SYRINGE SQ SCH ×2 (10:00→21:06)
[2022-10-28 11:12] LABS: Glucose,Whole Blood 116 mg/dL (70-110)
--- NOTE | 2022-10-28 11:44 | CA ---
Transthoracic Echo Report Name: Gomez Reaves Age: 77 Gender: M : 1945 Exam Date: 10/27/2022 13:15 Exam Location: [place] [facility] Ht (in): 74 Wt (lb): 276 Ordering Physician: Justo Machado MD ([id number]) Attending/Referring Phys: Jeannette RICARDO Manual Lathe Machinist Jocelin Monahan RDCS Procedure CPT: Indications: Bradycardia Cardiac Hx: Technical Quality: Technically difficult study Contrast 1: Lumason Total Dose (mL): 4 Contrast 2: Total Dose (mL): MEASUREMENTS (Male / Female) Normal Values 2D ECHO LV Diastolic Diameter PLAX 5.0 cm 4.2 - 5.9 / 3.9 - 5.3 cm LV Systolic Diameter PLAX 3.2 cm IVS Diastolic Thickness 1.4 cm 0.6 - 1.0 / 0.6 - 0.9 cm LVPW Diastolic Thickness 1.0 cm 0.6 - 1.0 / 0.6 - 0.9 cm LV Relative Wall Thickness 0.5 LA Volume 84.4 cm??? 18 - 58 / 22 - 52 cm??? M-MODE Aortic Root Diameter MM 3.4 cm LA Systolic Diameter MM 6.3 cm LA Ao Ratio MM 1.8 AV Cusp Separation MM 2.1 cm DOPPLER AV Peak Velocity 194.7 cm/s AV Peak Gradient 15.2 mmHg AV Mean Velocity 142.3 cm/s AV Mean Gradient 8.9 mmHg AV Velocity Time Integral 49.3 cm LVOT Peak Velocity 132.4 cm/s LVOT Peak Gradient 7.0 mmHg MV Area PHT 3.8 cm??? Mitral E Point Velocity 74.8 cm/s Mitral A Point Velocity 87.1 cm/s Mitral E to A Ratio 0.9 MV Deceleration Time 201.9 ms MV E' Velocity 9.4 cm/s Mitral E to MV E' Ratio 8.0 FINDINGS Left Ventricle Mildly increased septal wall thickness. Mildly reduced global left ventricular systolic function. Left ventricular ejection fraction is estimated at 55-60 %. Right Ventricle Right ventricle not well visualized. Right Atrium Right atrium not well visualized. Left Atrium Severely increased left atrial volume. Mildly increased left atrial area. Mitral Valve Mild mitral regurgitation. Aortic Valve Aortic valve not well visualized. Tricuspid Valve Mild tricuspid regurgitation. Pulmonic Valve Pulmonic valve not well visualized. Pericardium No pericardial effusion. Aorta Normal size aortic root and proximal ascending aorta. CONCLUSIONS Lumason ECHO contrast used for improved visualization of the endocardial borders (inadequate visualization of two or more contiguous segments). Normal left ventricle size and systolic function Valvular structures not well visualized Previewed by: Dr. Giuliana Delong MD (Electronically Signed) Final Date: 28 October 2022 11:43
[2022-10-28 16:48] LABS: Glucose,Whole Blood 178 mg/dL (70-110)
[2022-10-28] MEDS ORDERED: ATROPINE SULFATE 0.1 MG/ML 10ML SYRINGE ONE (19:05)
--- NOTE | 2022-10-28 19:48 | P.PN ---
Subjective Progress Note Date: 10/28/22 Principal diagnosis: Bradycardia Mr. Suarez is a 80-year-old male with a past medical history of atrial fibrillation, diabetes mellitus, hypertension, prostate disorder coming in with a chief complaint of dizziness and generalized weakness. In the ER patient was found to have severe bradycardia with heart rate as low as 19. Cardiology was consulted and patient was taken to the [facility] immediately had transvenous pacemaker placed by Dr. Bailey on 10/26/2022. Today the patient is comfortably lying in bed appears to be no acute distress in the ICU. Patient denies having any chest pain or palpitations or dizziness. No cough or difficulty in breathing. No back pain nausea vomiting or diarrhea. On reviewing the patient's vitals heart rate of 66 in sinus rhythm, respiratory 16 blood pressure 140/76 saturating 97% on room air. Patient's labs reviewed white count 7.7 hemoglobin 12 platelets 142. Sodium 137 potassium 4.6 chloride 111 bicarb 24 BUN 29 creatinine 1.35. Hemoglobin A1c of 6.2 patient had an echocardiogram done showing ejection fraction of 55 to 60%. Objective - Vital Signs Vital signs: Vital Signs Temp 97.6 F 10/28/22 12:00 Pulse 68 10/28/22 18:00 Resp 23 10/28/22 18:00 BP 145/83 10/28/22 18:00 Pulse Ox 95 10/28/22 18:00 FiO2 Intake & Output 10/28/22 10/28/22 10/29/22 06:59 18:59 06:59 Intake Total 240 640 Output Total 425 600 Balance -185 40 Weight 125.8 kg Intake: IV 240 240 0.9 @ KVO 240 240 Oral 400 Output: Urine 425 600 Other: Voiding Method Urinal Urinal # Bowel Movements 1 - Exam PHYSICAL EXAM GEN. APPEARANCE: no apparent distress HEAD EXAM: atraumatic, normocephalic, normal inspection EYE EXAM: normal appearance, PERRL, EOMI. RESPIRATORY EXAM: normal lung sounds bilaterally. Few basal crackles. CARDIOVASCULAR EXAM: regular rate, normal rhythm, normal heart sounds. GI/ABDOMINAL EXAM: soft, normal bowel sounds. Nontender nondistended EXTREMITIES EXAM: Mild pitting edema bilaterally NEUROLOGICAL EXAM: alert, oriented X3 - Labs CBC & Chem 7: 10/28/22 07:04 10/28/22 07:04 Labs: Abnormal Lab Results - Last 24 Hours (Table) 10/27/22 10/28/22 10/28/22 Range/Units 20:09 06:37 07:04 RBC 3.42 L (4.30-5.90) m/uL Hgb 12.0 L (13.0-17.5) gm/dL Hct 36.3 L (39.0-53.0) % MCV 106.1 H (80.0-100.0) fL Plt Count 142 L (150-450) k/uL Chloride (98-107) mmol/L BUN (9-20) mg/dL Creatinine (0.66-1.25) mg/dL Glucose (74-99) mg/dL POC Glucose (mg/dL) 180 H 138 H (70-110) mg/dL Hemoglobin A1c (0.0-6.0) % Calcium (8.4-10.2) mg/dL 10/28/22 10/28/22 10/28/22 Range/Units 07:04 07:04 11:10 RBC (4.30-5.90) m/uL Hgb (13.0-17.5) gm/dL Hct (39.0-53.0) % MCV (80.0-100.0) fL Plt Count (150-450) k/uL Chloride 111 H (98-107) mmol/L BUN 29 H (9-20) mg/dL Creatinine 1.35 H (0.66-1.25) mg/dL Glucose 117 H (74-99) mg/dL POC Glucose (mg/dL) 116 H (70-110) mg/dL Hemoglobin A1c 6.2 H (0.0-6.0) % Calcium 8.0 L (8.4-10.2) mg/dL 10/28/22 Range/Units 16:46 RBC (4.30-5.90) m/uL Hgb (13.0-17.5) gm/dL Hct (39.0-53.0) % MCV (80.0-100.0) fL Plt Count (150-450) k/uL Chloride (98-107) mmol/L BUN (9-20) mg/dL Creatinine (0.66-1.25) mg/dL Glucose (74-99) mg/dL POC Glucose (mg/dL) 178 H (70-110) mg/dL Hemoglobin A1c (0.0-6.0) % Calcium (8.4-10.2) mg/dL Assessment and Plan Assessment: ASSESSMENT Severe symptomatic bradycardia status post temporary transvenous pacemaker placement on 10/26/2022 History of atrial fibrillation, paroxysmal-status post cardioversion Acute kidney injury Hyponatremia Poorly controlled Type 2 diabetes mellitus Hypertension Prostrate disorder Mild protein calorie malnutrition PLAN : Patient currently in sinus rhythm maintaining on his own, the pacemaker is set to heart rate of 50 Patient's creatinine is slowly trending down IV heparin has been discontinued Sodium is back to baseline Will replace magnesium to keep at about 2 Patient's blood sugars under better control currently between 100s to 200s-we will adjust insulin requirement As the patient TSH is elevated at 17, he is being continued on levothyroxine 100 mcg Amlodipine 5 mg has been added for blood pressure control as he has been off of all AV sahil blocking agents due to severe bradycardia Anticipate discharge in the next 24 to 48 hours
[2022-10-28 20:09] LABS: Glucose,Whole Blood 121 mg/dL (70-110)
[2022-10-28] MEDS ORDERED: amLODIPine 5 MG TAB PO SCH (21:00)
[2022-10-29 05:57] LABS: Basophils # (A) 0.1 k/uL (0-0.2); Basophils % (A) 1 %; Eosinophils # (A) 0.3 k/uL (0-0.7); Eosinophils % (A) 4 %; HCT 38.2 % (39.0-53.0); HGB 12.8 gm/dL (13.0-17.5); Lymphocytes # (A) 1.3 k/uL (1.0-4.8); Lymphocytes % (A) 22 %; MCH 34.7 pg (25.0-35.0); MCHC 33.4 g/dL (31.0-37.0); MCV 103.7 fL (80.0-100.0); Macrocytosis Slight; Mean Platelet Volume 8.5; Monocytes # (A) 0.5 k/uL (0-1.0); Monocytes % (A) 9 %; Neutrophils # (A) 3.7 k/uL (1.3-7.7); Neutrophils % (A) 61 %; Platelet Count 146 k/uL (150-450); RBC 3.68 m/uL (4.30-5.90)
[2022-10-29 06:29] LABS: Calcium 8.1 mg/dL (8.4-10.2); Potassium 4.5 mmol/L (3.5-5.1)
[2022-10-29 06:47] LABS: Glucose,Whole Blood 160 mg/dL (70-110)
[2022-10-29] MEDS: NOREPINEPHRINE 4 MG in SODIUM CHLORIDE 0.9% 250 ML IV SCH (07:31)
[2022-10-29] MEDS: INSULIN ASPART (NovoLOG) 100 UNIT/ML VIAL SQ SCH ×2 (08:01→12:06)
[2022-10-29] MEDS: HEPARIN SODIUM,PORCINE/PF 5,000 UNIT/0.5 ML SYRINGE SQ SCH (08:02)
[2022-10-29] MEDS: TAMSULOSIN 0.4 MG CAP.ER.24H PO SCH (08:03)
[2022-10-29] MEDS: LEVOTHYROXINE 100 MCG TAB PO SCH (08:03)
[2022-10-29 08:08] VITALS: TEMP 98
[2022-10-29] MEDS ORDERED: METOPROLOL TARTRATE 12.5 MG TAB PO SCH (09:00)
--- NOTE | 2022-10-29 10:38 | PN ---
PROGRESS NOTE SUBJECTIVE: Mr. Reaves is in sinus rhythm, heart rate in the mid 60s. He is doing well, hemodynamically stable. Yesterday, he pulled his pacemaker. The sheath was taken out of the left groin. The right groin is clean and dry. OBJECTIVE: VITAL SIGNS: Stable. HEART: S1, S2 heard normally. LUNGS: Revealed decent air entry. ABDOMEN: Unchanged. LOWER EXTREMITIES: Unchanged. PLAN: Plan is to increase activity and discharge him on 12.5 mg b.i.d. of metoprolol and see Dr. Banda within the next 1 to 2 weeks. He can have a 24-hour Holter as an outpatient. MMGIOVANNAL / IJN: [id number] /
[2022-10-29 11:26] LABS: Glucose,Whole Blood 160 mg/dL (70-110)
[2022-10-29 12:06] VITALS: BP 125/75; RESP 14
[2022-10-29 13:52] VITALS: PULSE 59
== END 2022-10-29 15:25 | disposition home or self-care (01) | DRG 309 ==
LOC: EC 17:29 → 2SICU 18:51
PROVIDERS: ADMIT Internal Medicine; ATTEND Internal Medicine
PROC: 3E033XZ Introduction of Vasopressor into Peripheral Vein, Percutaneous Approach (ICD-10-PCS; 2022-10-26)
PROC: 5A1223Z Performance of Cardiac Pacing, Continuous (ICD-10-PCS; principal; 2022-10-26 19:34)
DX: I49.5 Sick sinus syndrome (principal); E44.1 Mild protein-calorie malnutrition; N17.9 Acute kidney failure, unspecified; E87.20 Acidosis, unspecified; E87.1 Hypo-osmolality and hyponatremia; I95.9 Hypotension, unspecified; E11.65 Type 2 diabetes mellitus with hyperglycemia; I10 Essential (primary) hypertension; Z68.37 Body mass index [BMI] 37.0-37.9, adult; I08.1 Rheumatic disorders of both mitral and tricuspid valves; I48.0 Paroxysmal atrial fibrillation; I44.39 Other atrioventricular block; T50.915A Adverse effect of multiple unspecified drugs, medicaments and biological substances, initial encounter; N42.9 Disorder of prostate, unspecified; E78.00 Pure hypercholesterolemia, unspecified; H91.90 Unspecified hearing loss, unspecified ear; Z79.899 Other long term (current) drug therapy; Z79.84 Long term (current) use of oral hypoglycemic drugs; Z79.01 Long term (current) use of anticoagulants; Z79.890 Hormone replacement therapy; Z28.310 Unvaccinated for COVID-19
CPT/HCPCS: 33210; 36415; 71045; 80048; 80053; 82330; 83036; 83605; 83735; 84439; 84443; 84481; 84484; 85025; 85610; 85730; 86850; 86900; 86901; 93005; 93306; 96365; 96366; 96368; 96375; 99291

== ENCOUNTER → 2023-03-17 | Outpatient (CLI) | payer MEDICARE ==
[2023-03-17 16:24] LABS: ALT 20 U/L (10-49); AST 26 U/L (14-35); African American GFR (CKD) 54.2 (60.0-200.0); Albumin 3.5 g/dL (3.8-4.9); Albumin/Globulin Ratio 1.29 (1.60-3.17); Alkaline Phosphatase 81 U/L (41-126); BUN/Creat Ratio 17.79 Ratio (12.00-20.00); Blood Urea Nitrogen 25.8 mg/dL (9.0-27.0); Carbon Dioxide 25.8 mmol/L (20.0-27.5); Chloride 103 mmol/L (96-109); Chol/HDL Ratio 2.67 Ratio; Globulin 2.7 g/dL (1.6-3.3); Glucose 134 mg/dL (70-110); LDL Cholesterol,Calculated 121.5 mg/dL (0.0-131.0); Non-African American GFR(CKD) 46.8 (60.0-200.0); Potassium 4.7 mmol/L (3.5-5.5); Sodium 138 mmol/L (135-145); Total Protein 6.2 g/dL (6.2-8.2); VLDL Calculation 14.34 mg/dL (5.00-40.00)
== END | disposition home or self-care (01) ==
LOC: LABWHC1 09:11
PROVIDERS: ATTEND Internal Medicine Interventional Cardiology
DX: I10 Essential (primary) hypertension (principal); I42.9 Cardiomyopathy, unspecified; E78.2 Mixed hyperlipidemia
CPT/HCPCS: 36415; 80053; 80061; 83880